=== PATIENT | female | born 1995 | race Caucasian/White ===

== ENCOUNTER → 2016-09-08 | Outpatient (CLI) | payer BC ==
[2016-09-08 11:07] LABS: BASOPHILS # (AUTO) 0.02 10*3/UL; BASOPHILS % (AUTO) 0.2 % (0-1); EOSINOPHILS # (AUTO) 0.05 10*3/UL; EOSINOPHILS % (AUTO) 0.6 % (0-8); HEMATOCRIT 40.6 % (37.0-47.0); HEMOGLOBIN 13.9 g/dL (12.0-16.0); LYMPHOCYTES # (AUTO) 1.23 10*3/uL; MEAN CORPUSCULAR HEMOGLOBIN 28.7 PG (27-31); MEAN CORPUSCULAR HGB CONC 34.2 g/dL (33-37); MEAN PLATELET VOLUME 10.5 FL (7.4-12.2); MONOCYTES # (AUTO) 0.88 10*3/UL (0.3-0.8); MONOCYTES % (AUTO) 10.2 % (5-15); NEUTROPHILS # (AUTO) 6.44 10*3/UL; NEUTROPHILS % (AUTO) 74.5 % (50-80); RED BLOOD COUNT 4.84 10^6/uL (4.20-5.40)
[2016-09-08 11:09] LABS: PLATELET MORPHOLOGY COMMENT NORMAL MORPHOLOGY (NORM); RBC MORPHOLOGY COMMENT NORMAL MORPHOLOGY (NORM); WBC MORPHOLOGY COMMENT NORMAL MORPHOLOGY (NORM)
[2016-09-08 11:42] LABS: HIV ANTIBODY NEGATIVE (N); HIV-1 P24 ANTIGEN NEGATIVE (N)
[2016-09-09 10:57] LABS: HEP B SURFACE AG Negative (Negative)
== END ==
LOC: MOB LAB 10:15
PROVIDERS: ATTEND Obstetrics & Gynecology
DX: Z36 Encounter for antenatal screening of mother (principal)
CPT/HCPCS: 36415; 80081; 86900; 86901; 87088

== ENCOUNTER → 2016-11-25 | Outpatient (CLI) | payer BC ==
--- NOTE | 2016-11-25 18:37 | DI ---
OBSTETRICAL ULTRASOUND, 11/25/2016 3:06 PM: Clinical History: Antepartum screening. Previous Exam: None at this facility for this . ADJUSTED DATE FROM EARLY OBUS: 07/14/2016. There is a single live IUP currently in vertex presentation. Amnionic fluid content is normal. activity is observed as follows: cardiac, extremity, and respiratory. The placenta is anterior corpus and Grade 1. heart rate varies between 146-150 beats/minute and is regular. There is a 3 vesse l cord. The RVOT, LVOT and 4 chamber heart view are normal. The aortic arch and descending aorta are normal. Views of the spine, face, and kidneys are unremarkable. BPD, HC, AC, and FL measurement s are 45 mm, 164 mm, 142 mm, and 31 mm, respectively. These measurements correspond to EGA values of 19 weeks 5 days, 19 weeks 1 day, 19 weeks 4 days and 19 weeks 5 days, respectively. Composite EGA is 19 weeks 4 days The US EDC is 04/17/2017. EDC by adjusted LMP is 04/20/2017. Readin. Single live fetus with vertex presentation and normal amniotic fluid content. Placenta is anterio r corpus and grade 1. 2. The composite EGA is 19 weeks 4 days with an ultrasound EDC of 04/17/2017. Based on the adjusted LMP date of 07/14/2016, the EDC would be 04/20/2017.
== END ==
LOC: US 14:48
PROVIDERS: ATTEND Obstetrics & Gynecology
DX: Z36 Encounter for antenatal screening of mother (principal); Z3A.19 19 weeks gestation of pregnancy
CPT/HCPCS: 76805

== ENCOUNTER → 2017-01-26 | Outpatient (CLI) | payer BC ==
[2017-01-26 14:44] LABS: HEMATOCRIT 36.4 % (37.0-47.0); HEMOGLOBIN 12.2 g/dL (12.0-16.0); MEAN CORPUSCULAR HEMOGLOBIN 29.4 PG (27-31); MEAN CORPUSCULAR HGB CONC 33.5 g/dL (33-37); MEAN CORPUSCULAR VOLUME 87.7 FL (81-99); MEAN PLATELET VOLUME 10.1 FL (7.4-12.2); RED BLOOD COUNT 4.15 10^6/uL (4.20-5.40)
== END ==
LOC: LAB 13:31
PROVIDERS: ATTEND Obstetrics & Gynecology
DX: Z36 Encounter for antenatal screening of mother (principal); Z3A.28 28 weeks gestation of pregnancy
CPT/HCPCS: 36415; 82950; 85027

== ENCOUNTER 2017-04-05 13:08 | Inpatient (IN) ==
[2017-04-05] MEDS ORDERED: NORMAL SALINE 10 ML SYRINGE FLUSH IVP PRN ×3 (13:16→20:13)
[2017-04-05] MEDS ORDERED: Lidocaine 1% 10 MG/ML - 20 ML VIAL SUBCUT PRN (15:23)
[2017-04-05] MEDS ORDERED: Phenylephrine Inj 50 MCG in Normal Saline Flush 0.5 ML IVP PRN (15:23)
[2017-04-05] MEDS ORDERED: Nalbuphine Inj 20 MG/ML Ampule IVP PRN ×2 (15:23→20:13)
[2017-04-05] MEDS ORDERED: CefOXitin Inj 2 GM in Sodium Chloride 0.9% 100 ML IV PRN (15:23)
[2017-04-05] MEDS ORDERED: METHYLERGONOVINE MALEATE 0.2 MG/1 ML VIAL IM PRN (15:23)
[2017-04-05] MEDS ORDERED: CALCIUM CARBONATE 500 MG (TUMS) CHEWABLE TABLET PO PRN ×2 (15:23→20:13)
[2017-04-05] MEDS ORDERED: ePHEDrine Inj 5 MG in Normal Saline Flush 1 ML IVP PRN (15:23)
[2017-04-05] MEDS ORDERED: NALOXONE 0.4 MG/1 ML VIAL IVP PRN (15:23)
[2017-04-05] MEDS ORDERED: MISOPROSTOL 200 MCG TABLET RECTAL PRN (15:23)
[2017-04-05] MEDS ORDERED: Famotidine Inj 20 MG in Normal Saline Flush 10 ML IVP PRN ×4 (15:23)
[2017-04-05] MEDS ORDERED: Naloxone Inj 0.01 MG in Normal Saline Flush 1 ML IVP PRN (15:23)
[2017-04-05] MEDS ORDERED: LIDOCAINE W/ SODIUM BICARB 0.5 ML SYR SUBD PRN (15:23)
[2017-04-05] MEDS ORDERED: OXYTOCIN 10 UNIT/1 ML IM PRN (15:23)
[2017-04-05] MEDS ORDERED: fentaNYL Inj 100 MCG/2 ML VIAL IV PRN (15:23)
[2017-04-05] MEDS ORDERED: ONDANSETRON 4 MG/2 ML VIAL IVP PRN ×2 (15:23→20:13)
[2017-04-05] MEDS ORDERED: Carboprost Inj 250 MCG/ML AMP IM PRN (15:23)
[2017-04-05] MEDS ORDERED: Metoclopramide Inj 10 MG/2 ML VIAL IV PRN (15:23)
[2017-04-05] MEDS ORDERED: BUTORPHANOL TARTRATE 2 MG/1 ML VIAL IVP PRN (15:23)
[2017-04-05] MEDS ORDERED: diphenhydrAMINE 50 MG/1 ML VIAL IVP PRN ×2 (15:23→20:13)
[2017-04-05] MEDS ORDERED: CITRIC ACID/SODIUM CITRATE 30 ML CUP PO PRN (15:23)
[2017-04-05] MEDS ORDERED: TERBUTALINE SULFATE 1 MG/1 ML SDV SUBCUT PRN (15:23)
[2017-04-05] MEDS ORDERED: Oxytocin 20 Units + LR 20 UNIT/1,000 ML BAG IV SCH ×3 (15:30→20:13)
[2017-04-05] MEDS ORDERED: Lactated Ringers-OB Dept 1,000 ML PRIMARY IV SCH (15:30)
[2017-04-05 16:25] LABS: Hematocrit [HCT] 39.2 % (37.0-47.0); Hemoglobin [HGB] 13.2 g/dL (12.0-16.0); MEAN CORPUSCULAR HEMOGLOBIN 28.8 PG (27-31); MEAN CORPUSCULAR HGB CONC 33.7 g/dL (33-37); MEAN CORPUSCULAR VOLUME 85.6 FL (81-99); MEAN PLATELET VOLUME 10.7 FL (7.4-12.2); RED BLOOD COUNT 4.58 10^6/uL (4.20-5.40)
--- NOTE | 2017-04-05 19:08 | OB.DEL.SUM ---
Delivery Note Delivery Summary: The patient is a 21-year-old 001 now P2002 who was admitted earlier today by my EVENT PLANNING MANAGER partner-Dr. Alfonso Blancas-4 latent labor with contractions every 5-10 minutes. The patient was checked around 1700 hrs. and was found to be [address] Blancas checked the patient out to me since I was on-call and he would not be available. Shortly after that time, the patient had SROM with clear fluid. GBS was negative. The patient was found to be 7 cm. I had requested that Pitocin be started since the contractions were every 7-10 minutes apart. A little more than 30 minutes later, the patient was found to be 9 cm and starting to have the urge to push. I presented to labor and delivery and that the patient. I checked the patient and she had an anterior lip of her cervix which was soft and pliable. 5 minutes later the patient was found to be complete. The patient had infrequent contractions but with contractions she had a good urge to push and soon brought the baby down to +4 station. The perineum stretched but was quite tight. The patient did not have the urge to push again at that time. I did inject 4 mL of Xylocaine without epinephrine into her posterior fourchette in case I had to cut an episiotomy or in case the patient had a midline laceration. The patient then had the urge to push and I guarded the patient's perineum and the patient delivered the baby's head with pushing and then the anterior shoulder. The mouth and nose were bulb suctioned. The baby was then delivered completely. The mother desired the baby up on her abdomen and chest. Delayed cord clamping for about 40 seconds was allowed for. The cord was then clamped and cut. Cord blood was obtained. The baby had a lusty cry and was doing well also cord gases were not obtained. The placenta then delivered spontaneously about 10 minutes later intact. The placenta was examined and appeared intact. The uterus was then massaged and Pitocin IV was administered. A total of about 350 mL of EBL. The patient's vagina was examined and there were a couple skid bradford from the delivery but no deep lacerations. A couple of the skid bradford were repaired with 3-0 Vicryl Rapide suture on an SH needle. This was done in interrupted sutures and one [id number] suture. This was mainly on the patient's left side and then posterior vagina 1 superficial skid negro and on the patient's perineum there was one superficial skid negro from stretching where I had injected the 4 mL of Xylocaine previously. I was going to do a rectal exam but then got sidetracked from something else and a rectal exam was not done after delivery but the patient's vagina and perineum appeared intact. Findings were a female infant with Apgars of 8 and 9 and a weight of 5 pounds 14.7 ounces. EBL was 350 mL. The patient and baby will recover in the delivery room . Normal orders. Dr. Blancas will see the patient tomorrow. Pediatrics will also see the baby. The mother and baby were doing well at the end of the delivery process.
[2017-04-05] MEDS ORDERED: IBUPROFEN 800 MG TABLET PO PRN (20:13)
[2017-04-05] MEDS ORDERED: LIDOCAINE HCL 2 % 10 ML JELLY URO-JECT TOPICAL PRN (20:13)
[2017-04-05] MEDS ORDERED: Ondansetron ODT Tab 4 MG TAB PO PRN (20:13)
[2017-04-05] MEDS ORDERED: DIPH,PERTUSS,TET(ADACEL) VAC/PF 0.5 ML (Tdap) IM ONE (20:13)
[2017-04-05] MEDS ORDERED: GLYCERIN/WITCH HAZEL 1 BOX TOPICAL PRN (20:13)
[2017-04-05] MEDS ORDERED: LANOLIN HPA 40 GM TUBE TOPICAL PRN (20:13)
[2017-04-05] MEDS ORDERED: HYDROcodone-APAP 5 MG -325 MG TABLET PO PRN (20:13)
[2017-04-05] MEDS ORDERED: BENZOCAINE/MENTHOL SPRAY 56 GM BOTTLE TOPICAL PRN (20:13)
[2017-04-05] MEDS ORDERED: ACETAMINOPHEN 325 MG TABLET PO PRN (20:13)
[2017-04-05] MEDS ORDERED: diphenhydrAMINE 25 MG CAPSULE PO PRN (20:13)
[2017-04-06 06:09] LABS: Hematocrit [HCT] 36.8 % (37.0-47.0); Hemoglobin [HGB] 12.3 g/dL (12.0-16.0); MEAN CORPUSCULAR HEMOGLOBIN 28.7 PG (27-31); MEAN CORPUSCULAR HGB CONC 33.4 g/dL (33-37); RED BLOOD COUNT 4.28 10^6/uL (4.20-5.40)
[2017-04-06] MEDS: DOCUSATE 100 MG CAPSULE PO SCH ×2 (06:54→08:57)
[2017-04-06] MEDS ORDERED: Prenatal Multivitamin Tab 1 TAB TAB PO SCH (09:00)
[2017-04-06 16:11] VITALS: BP 109/67; RESP 16; TEMP 98.2; O2SAT 99
[2017-04-06] MEDS ORDERED: Lidocaine Inj 1% 20 ML ONE (16:27)
--- NOTE | 2017-04-06 16:53 | DCSUMMARY ---
Hospitalization Summary Admit Date: 04/05/17 Discharge Date: 04/06/17 Primary Diagnosis:: Term , Delivered Delivery Type: Vaginal Hospital Course: Normal, uncomplicated labor, delivery, and course. / Postop Complications: None Complications: None Exam - Vitals Vital Signs: Vital Signs Temperature 98.2 F Temperature Source Oral Pulse Rate [Pulse Oximeter] 75 Pulse Rate [Apical] 75 Pulse Rate 114 Respiratory Rate 16 Blood Pressure [Left Arm] 109/67 Blood Pressure 119/71 Pulse Ox 99 Oxygen Delivery Method Room Air Height 5 ft 2 in Weight 148 lb
--- NOTE | 2017-04-11 08:23 | OB.PROGRES ---
Subjective Post Op Day: 1 Pain Management: PO Johnson Catheter: No Flatus: Yes Diet: Regular Feeding Method: Exculsively Ambulating: Yes Assesstment / Plan Assessment / Plan: PPD 1 doing well. Discharge to home.
== END 2017-04-06 21:00 | disposition home or self-care (01) | DRG 775 ==
LOC: OBOP 13:08 → OBIP 15:23
PROVIDERS: ADMIT Obstetrics & Gynecology; ATTEND Obstetrics & Gynecology